=== PATIENT | male | born 1955 ===

== ENCOUNTER 2021-10-08 17:05 | Inpatient (IN) ==
[2021-10-08] MEDS ORDERED: NS 0.9% 500 ml BAG 500 ML IV ONE (17:36)
[2021-10-08] MEDS ORDERED: NS 0.9% 1000 ml BAG 1,000 ML IV ONE (17:51)
[2021-10-08 17:58] LABS: INR 1.09 (0.86-1.15)
[2021-10-08 18:25] LABS: ABS Basophils 0.1 10^3/ul (0-0.2); ABS Eosinophils 0.1 10^3/ul (0-0.6); ABS Lymphocytes 2.4 10^3/ul (1.0-4.8); ABS Monocytes 1.7 10^3/ul (0-0.8); ABS Neutrophils 12.6 10^3/ul (1.5-7.7); Eosinophil % 0.6 %; Hematocrit 45 % (42-52); Hemoglobin 14.9 g/dL (14.0-18.0); Lymphocyte % 14.4 %; Mean Corpuscular HGB Conc 33 g/dL (31-36); Mean Corpuscular Hemoglobin 30 pg (27-31); Mean Corpuscular Volume 91 fL (80-94); Red Cell Distribution Width 14 % (10-15); White Blood Count 16.9 10^3/uL (3.5-10.8)
[2021-10-08] MEDS: Iohexol 350 (CONTRAST) 500 ML MDV IV ONE ×2 (18:25→18:50)
[2021-10-08 18:34] LABS: Albumin 4.4 g/dL (3.2-5.2); Albumin/Globulin Ratio 1.4 (1-3); Calcium 9.2 mg/dL (8.6-10.3); Globulin 3.1 g/dL (2-4); Potassium 3.8 mmol/L (3.5-5.0); Total Bilirubin 0.6 mg/dL (0.2-1.0); Total Protein 7.5 g/dL (6.4-8.9); eGFR CKD-EPI 76.9 (>60)
[2021-10-08 18:38] LABS: Activated Partial Thrombo Time 29.4 seconds (26.0-38.0)
[2021-10-08 19:27] LABS: Platelet Count Platelets clumped. 10^3/uL (150-450)
[2021-10-08 19:36] LABS: HDL Cholesterol 56.3 mg/dL
[2021-10-08 20:02] LABS: High Sensitivity Troponin 1 Hr 9 pg/mL (<20)
[2021-10-08] MEDS ORDERED: cefTRIAXone 1 gm/50 mL D5W 1 GM/50 ML BAG IV ONE (20:22)
[2021-10-08] MEDS: Azithromycin 500 mg/250 ml NS 500 MG/250 ML BAG IVPB SCH (22:44)
[2021-10-08 22:58] LABS: C Reactive Protein 3.69 mg/L (<8.01)
[2021-10-09 06:27] LABS: ABS Basophils 0.1 10^3/ul (0-0.2); ABS Eosinophils 0.1 10^3/ul (0-0.6); ABS Lymphocytes 1.5 10^3/ul (1.0-4.8); ABS Monocytes 1.5 10^3/ul (0-0.8); ABS Neutrophils 12.8 10^3/ul (1.5-7.7); Eosinophil % 0.3 %; Hematocrit 48 % (42-52); Hemoglobin 15.8 g/dL (14.0-18.0); Lymphocyte % 9.5 %; Mean Corpuscular HGB Conc 33 g/dL (31-36); Mean Corpuscular Hemoglobin 30 pg (27-31); Mean Corpuscular Volume 90 fL (80-94); Mean Platelet Volume 7.1 fL (7.4-10.4); Nucleated Red Blood Cells % 0.1; Platelet Count 324 10^3/uL (150-450); Red Blood Count 5.29 10^6 /uL (4.18-5.48); Red Cell Distribution Width 15 % (10-15); White Blood Count 16.1 10^3/uL (3.5-10.8)
[2021-10-09 06:41] LABS: INR 1.13 (0.86-1.15)
[2021-10-09 07:08] LABS: Calcium 9.1 mg/dL (8.6-10.3); Magnesium 1.9 mg/dL (1.9-2.7); Potassium 4.2 mmol/L (3.5-5.0); eGFR CKD-EPI 83.5 (>60)
[2021-10-09] MEDS ORDERED: Digoxin IV 0.5 MG/2 ML AMP (0.25 MG/ML) IV SLOW PU ONE ×2 (15:47→17:01)
[2021-10-09] MEDS ORDERED: Metoprolol Tartrate 5 mg VIAL 5 ml VIAL (1 mg/ml) IV ONE (20:42)
[2021-10-09] MEDS: Azithromycin 500 mg/250 ml NS 500 MG/250 ML BAG IVPB SCH (20:56)
[2021-10-09] MEDS ORDERED: cefTRIAXone 1 gm/50 mL D5W 1 GM/50 ML BAG IV SCH (21:00)
[2021-10-09 21:42] LABS: Urine Appearance Clear; Urine Bilirubin Negative (Negative); Urine Blood 1+ (Negative); Urine Color Yellow; Urine Glucose Negative (Negative); Urine Ketones Negative (Negative); Urine Nitrite Negative (Negative); Urine Protein Negative (Negative); Urine Urobilinogen Negative (Negative)
[2021-10-09 21:59] LABS: Urine Bacteria Absent (Absent); Urine Red Blood Cell 2+(6-10/hpf) (Absent); Urine Sperm Present (Absent); Urine White Blood Cell Trace(0-5/hpf) (Absent)
[2021-10-09] MEDS: Digoxin IV 0.5 MG/2 ML AMP (0.25 MG/ML) IV SLOW PU SCH (23:55)
[2021-10-10] MEDS: Digoxin IV 0.5 MG/2 ML AMP (0.25 MG/ML) IV SLOW PU SCH (06:03)
[2021-10-10 09:06] LABS: Hematocrit 44 % (42-52); Hemoglobin 14.7 g/dL (14.0-18.0); Mean Corpuscular HGB Conc 34 g/dL (31-36); Mean Corpuscular Hemoglobin 31 pg (27-31); Mean Corpuscular Volume 91 fL (80-94); Mean Platelet Volume 7.2 fL (7.4-10.4); Platelet Count 312 10^3/uL (150-450); Red Blood Count 4.78 10^6 /uL (4.18-5.48); Red Cell Distribution Width 14 % (10-15); White Blood Count 18.1 10^3/uL (3.5-10.8)
[2021-10-10 09:09] LABS: ABS Basophils 0.1 10^3/ul (0-0.2); ABS Lymphocytes 1.7 10^3/ul (1.0-4.8); ABS Monocytes 1.8 10^3/ul (0-0.8); ABS Neutrophils 14.5 10^3/ul (1.5-7.7); Eosinophil % 0.2 %; Lymphocyte % 9.2 %
[2021-10-10 09:47] LABS: Calcium 9.4 mg/dL (8.6-10.3); Potassium 4.4 mmol/L (3.5-5.0); eGFR CKD-EPI 68.3 (>60)
[2021-10-12 17:48] VITALS: BP 139/78
== END 2021-10-12 13:09 | disposition home or self-care (01) | DRG 65 ==
LOC: EDHOLD 17:05 → ED 17:05 → SUATTDRO 10-09 09:00 → EDHOLD 10-09 16:07 → MEDTELE 10-09 17:08
PROVIDERS: ADMIT Internal Medicine; ATTEND Hospitalist

== ENCOUNTER 2022-02-23 18:15 | Inpatient (IN) ==
[2022-02-23 19:14] LABS: Hematocrit 40 % (42-52); Hemoglobin 13.3 g/dL (14.0-18.0); Mean Corpuscular HGB Conc 33 g/dL (31-36); Mean Corpuscular Hemoglobin 29 pg (27-31); Mean Corpuscular Volume 88 fL (80-94); Mean Platelet Volume 9.8 fL (7.4-10.4); Platelet Count 40 10^3/uL (150-450); Red Blood Count 4.54 10^6 /uL (4.18-5.48); Red Cell Distribution Width 15 % (10-15); White Blood Count 6.5 10^3/uL (3.5-10.8)
[2022-02-23 19:23] LABS: INR 1.96 (0.89-1.11)
[2022-02-23 19:48] LABS: ABS Lymphocytes 0.2 10^3/ul (1.0-4.8); ABS Monocytes 0.4 10^3/ul (0-0.8); ABS Neutrophils 5.9 10^3/ul (1.5-7.7); Lymphocyte % 3.4 %; Nucleated Red Blood Cells % 0.1
[2022-02-23 19:50] LABS: Albumin 3.7 g/dL (3.2-5.2); Albumin/Globulin Ratio 1.4 (1-3); Calcium 8.1 mg/dL (8.6-10.3); Globulin 2.7 g/dL (2-4); Potassium 4.4 mmol/L (3.5-5.0); Total Bilirubin 1.8 mg/dL (0.2-1.0); Total Protein 6.4 g/dL (6.4-8.9); eGFR CKD-EPI 59.7 (>60)
[2022-02-23] MEDS ORDERED: Lactated Ringers 1000 ml BAG 1,000 ML IV ONE (20:33)
[2022-02-23] MEDS ORDERED: cefTRIAXone 1 gm/50 mL D5W 1 GM/50 ML BAG IV ONE (20:33)
[2022-02-23] MEDS ORDERED: Azithromycin 500 mg/250 ml NS 500 MG/250 ML BAG IVPB ONE (20:34)
[2022-02-23 20:47] LABS: High Sensitivity Troponin 1 Hr 383 pg/mL (<20)
[2022-02-23] MEDS ORDERED: Iodixanol (CONTRAST) 320 MG/ML 100 ML SDV IV ONE (20:48)
[2022-02-23 21:15] LABS: Magnesium 1.9 mg/dL (1.9-2.7)
[2022-02-23 21:20] LABS: PCO2 Arterial 33 mmHg (35-45); PO2 Arterial 97 mmHg (80-100)
[2022-02-23] MEDS ORDERED: Furosemide 40 mg/4 ml IV VIAL IV ONE (21:25)
[2022-02-23] MEDS ORDERED: Acetaminophen IV 1 GM/100ML 1,000 MG/100 ML BAG IV PRN (22:40)
[2022-02-23] MEDS ORDERED: Enoxaparin 60 MG/0.6 ML SYR SUBCUT SCH (23:00)
[2022-02-24 00:02] LABS: Urine Appearance Cloudy; Urine Bilirubin Negative (Negative); Urine Blood 3+ (Negative); Urine Color Yellow; Urine Glucose Negative (Negative); Urine Ketones Negative (Negative); Urine Nitrite Negative (Negative); Urine Protein 1+(30 mg/dL) (Negative); Urine Specific Gravity 1.023 (1.002-1.030); Urine Urobilinogen Negative (Negative)
[2022-02-24] MEDS ORDERED: Digoxin IV 0.5 MG/2 ML AMP (0.25 MG/ML) IV SLOW PU ONE ×4 (00:13→21:00)
[2022-02-24 00:28] LABS: Urine Bacteria 1+ (Absent); Urine Granular Casts Present (Absent); Urine Red Blood Cell 2+(6-10/hpf) (Absent); Urine White Blood Cell 1+(6-10/hpf) (Absent)
[2022-02-24 00:58] LABS: Calcium 7.6 mg/dL (8.6-10.3); Potassium 3.7 mmol/L (3.5-5.0); eGFR CKD-EPI 53.7 (>60)
[2022-02-24 01:16] LABS: PCO2 Arterial 34 mmHg (35-45); PO2 Arterial 94 mmHg (80-100)
[2022-02-24 04:20] LABS: ABS Lymphocytes 0.1 10^3/ul (1.0-4.8); ABS Monocytes 0.1 10^3/ul (0-0.8); Hematocrit 37 % (42-52); Hemoglobin 12.5 g/dL (14.0-18.0); Lymphocyte % 1.5 %; Mean Corpuscular HGB Conc 34 g/dL (31-36); Mean Corpuscular Hemoglobin 29 pg (27-31); Mean Corpuscular Volume 87 fL (80-94); Mean Platelet Volume 9.5 fL (7.4-10.4); Platelet Count 31 10^3/uL (150-450); Red Cell Distribution Width 15 % (10-15); White Blood Count 6.2 10^3/uL (3.5-10.8)
[2022-02-24 04:51] LABS: Albumin 3.1 g/dL (3.2-5.2); Albumin/Globulin Ratio 1.3 (1-3); Calcium 7.5 mg/dL (8.6-10.3); Globulin 2.4 g/dL (2-4); Magnesium 1.8 mg/dL (1.9-2.7); Potassium 3.4 mmol/L (3.5-5.0); Total Protein 5.5 g/dL (6.4-8.9)
[2022-02-24] MEDS ORDERED: Magnesium Sulfate 2 gm BAG 2 GM/50 ML BAG IVPB ONE (05:13)
[2022-02-24] MEDS: KCL 20 MEQ/100 ML IVPREMIX 20 MEQ/100 ML BAG IV SCH ×2 (05:38→08:03)
[2022-02-24 09:52] LABS: Phosphorus 3.7 mg/dL (2.5-5.0)
[2022-02-24 12:30] LABS: TSH Ultra Thyroid Stim Horm 1.61 mcIU/mL (0.34-5.60)
[2022-02-24] MEDS ORDERED: Furosemide 20 mg/2 ml IV VIAL IV SLOW PU ONE (14:11)
[2022-02-24 16:19] LABS: Hematocrit 40 % (42-52); Hemoglobin 13.5 g/dL (14.0-18.0); Mean Corpuscular HGB Conc 34 g/dL (31-36); Mean Corpuscular Hemoglobin 29 pg (27-31); Mean Corpuscular Volume 87 fL (80-94); Red Blood Count 4.63 10^6 /uL (4.18-5.48); Red Cell Distribution Width 15 % (10-15); White Blood Count 6.1 10^3/uL (3.5-10.8)
[2022-02-24 16:26] LABS: Magnesium 2.6 mg/dL (1.9-2.7)
[2022-02-24 16:32] LABS: % Iron Saturation 11 % (15-55); Albumin/Globulin Ratio 1.2 (1-3); Anion Gap 7 mmol/L (2-11); CO2 Carbon Dioxide 29 mmol/L (22-32); Calcium 7.9 mg/dL (8.6-10.3); Chloride 93 mmol/L (101-111); Globulin 2.5 g/dL (2-4); Iron 23 ug/dL (50-212); Sodium 129 mmol/L (135-145); Total Iron Binding Capacity 209 mcg/dL (250-450); Total Protein 5.5 g/dL (6.4-8.9); Transferrin 149 mg/dL (203-362); Unsaturated Iron Binding 186 ug/dL
[2022-02-24 16:33] LABS: ALT 69 U/L (7-52); AST 114 U/L (13-39); Alkaline Phosphatase 76 U/L (35-149); Blood Urea Nitrogen 34 mg/dL (6-24); Glucose 99 mg/dL (70-100); eGFR CKD-EPI 54.2 (>60)
[2022-02-24 17:35] LABS: ABS Lymphocytes 0.1 10^3/ul (1.0-4.8); ABS Monocytes 0.2 10^3/ul (0-0.8); ABS Neutrophils 5.8 10^3/ul (1.5-7.7); Eosinophil % 0.1 %; Lymphocyte % 1.7 %; Mean Platelet Volume 11.2 fL (7.4-10.4); Nucleated Red Blood Cells % 0.2; Platelet Count 34 10^3/uL (150-450)
[2022-02-24 18:43] LABS: Ferritin > 7500.0 ng/mL (24-336)
[2022-02-24] MEDS ORDERED: cefTRIAXone 1 gm/50 mL D5W 1 GM/50 ML BAG IV SCH (20:00)
[2022-02-24] MEDS: Pantoprazole VIAL 40 MG VIAL IV SCH (20:32)
[2022-02-25 06:29] LABS: Hematocrit 37 % (42-52); Hemoglobin 12.3 g/dL (14.0-18.0); Mean Corpuscular HGB Conc 34 g/dL (31-36); Mean Corpuscular Hemoglobin 29 pg (27-31); Mean Corpuscular Volume 88 fL (80-94); Mean Platelet Volume 10.6 fL (7.4-10.4); Platelet Count 30 10^3/uL (150-450); Red Blood Count 4.19 10^6 /uL (4.18-5.48); Red Cell Distribution Width 15 % (10-15); White Blood Count 5.3 10^3/uL (3.5-10.8)
[2022-02-25 06:55] LABS: Albumin 2.5 g/dL (3.2-5.2); Albumin/Globulin Ratio 1.3 (1-3); Calcium 6.9 mg/dL (8.6-10.3); Digoxin 1.7 ng/ml (0.8-2.0); Potassium 3.4 mmol/L (3.5-5.0); Total Bilirubin 2.1 mg/dL (0.2-1.0); Total Protein 4.5 g/dL (6.4-8.9); eGFR CKD-EPI 59.1 (>60)
[2022-02-25 07:34] LABS: ABS Lymphocytes 0.1 10^3/ul (1.0-4.8); ABS Monocytes 0.1 10^3/ul (0-0.8); ABS Neutrophils 5.1 10^3/ul (1.5-7.7); Lymphocyte % 1.6 %
[2022-02-25] MEDS ORDERED: Piperacillin/Tazobac ADVAN 3.375 GM in NS 0.9% 100 ml BAG 100 ML IV ONE (08:19)
[2022-02-25] MEDS: Pantoprazole VIAL 40 MG VIAL IV SCH ×2 (08:42→21:23)
[2022-02-25] MEDS ORDERED: Zosyn per Pharmacy NOTE FOLLOW UP SCH (09:00)
[2022-02-25] MEDS ORDERED: Potassium Chlor 20 meq TAB.ER PO ONE ×2 (09:46→15:45)
[2022-02-25] MEDS ORDERED: Vancomycin per Pharmacy 1 EA NOTE FOLLOW UP SCH (10:00)
[2022-02-25] MEDS ORDERED: Vancomycin 1,000 MG in NS 0.9% 250 ml 250 ML IVPB ONE (10:00)
[2022-02-25] MEDS: ZOSYN 3.375 GM Q8H per EXTENDED INFUSION IV SCH ×2 (13:08→21:24)
[2022-02-25] MEDS ORDERED: Amiodarone 150 mg IVPREMIX 150 MG/100 ML BAG IV ONE (18:10)
[2022-02-25] MEDS ORDERED: .Amiodarone 24HR ONLY IV Protocol Order Note IV ONE (18:10)
[2022-02-25] MEDS: Amiodarone 360 MG IVPREMIX 360 MG/200 ML BAG IV SCH ×2 (18:32→18:40)
[2022-02-25] MEDS: Vancomycin 750 MG in NS 0.9% 250 ML IVPB SCH (23:13)
[2022-02-26] MEDS: Amiodarone 360 MG IVPREMIX 360 MG/200 ML BAG IV SCH ×2 (00:07→12:08)
[2022-02-26] MEDS: ZOSYN 3.375 GM Q8H per EXTENDED INFUSION IV SCH ×3 (04:36→20:52)
[2022-02-26 05:18] LABS: Hematocrit 36 % (42-52); Hemoglobin 11.9 g/dL (14.0-18.0); Mean Corpuscular HGB Conc 33 g/dL (31-36); Mean Corpuscular Hemoglobin 29 pg (27-31); Mean Corpuscular Volume 88 fL (80-94); Mean Platelet Volume 11.1 fL (7.4-10.4); Platelet Count 35 10^3/uL (150-450); Red Blood Count 4.13 10^6 /uL (4.18-5.48); Red Cell Distribution Width 15 % (10-15); White Blood Count 5.3 10^3/uL (3.5-10.8)
[2022-02-26 05:27] LABS: Urine Osmo 521 mOsm/kg (150-1150)
[2022-02-26 05:29] LABS: Calcium 7.3 mg/dL (8.6-10.3); Magnesium 2.1 mg/dL (1.9-2.7); Potassium 4.1 mmol/L (3.5-5.0); eGFR CKD-EPI 50.7 (>60)
[2022-02-26 07:26] LABS: RBC Morphology Normal (Normal)
[2022-02-26 07:27] LABS: ABS Lymphocytes 0.3 10^3/ul (1.0-4.8); ABS Monocytes 0.4 10^3/ul (0-0.8); ABS Neutrophils 4.7 10^3/ul (1.5-7.7); Eosinophil % 0.2 %; Lymphocyte % 5.4 %; Nucleated Red Blood Cells % 0.2
[2022-02-26 08:28] LABS: C Reactive Protein 261.48 mg/L (<8.01)
[2022-02-26] MEDS: Pantoprazole VIAL 40 MG VIAL IV SCH ×2 (08:53→20:51)
[2022-02-26] MEDS: Vancomycin 750 MG in NS 0.9% 250 ML IVPB SCH ×2 (09:38→22:12)
[2022-02-26] MEDS: DOXYcycline 100 MG in NS 0.9% 250 ml 250 ML IVPB SCH ×2 (11:13→22:40)
[2022-02-26 15:13] LABS: Urine Osmo 509 mOsm/kg (150-1150)
[2022-02-26 15:49] LABS: Hematocrit 34 % (42-52); Hemoglobin 11.4 g/dL (14.0-18.0); Mean Corpuscular HGB Conc 34 g/dL (31-36); Mean Corpuscular Hemoglobin 30 pg (27-31); Mean Corpuscular Volume 87 fL (80-94); Mean Platelet Volume 10.3 fL (7.4-10.4); Platelet Count 33 10^3/uL (150-450); Red Blood Count 3.86 10^6 /uL (4.18-5.48); Red Cell Distribution Width 16 % (10-15); White Blood Count 4.5 10^3/uL (3.5-10.8)
[2022-02-26 16:41] LABS: ABS Lymphocytes 0.1 10^3/ul (1.0-4.8); ABS Monocytes 0.5 10^3/ul (0-0.8); ABS Neutrophils 3.9 10^3/ul (1.5-7.7); Acanthocytes 1+; Anisocytosis 1+; Eosinophil % 0.2 %; Toxic Granulation 1+
[2022-02-26 16:51] LABS: Dohle Bodies Present
[2022-02-26] MEDS ORDERED: Rocuronium 50 mg VIAL 10 mg/ml 5 ml VIAL (50 mg) ONE (21:10)
[2022-02-26] MEDS ORDERED: Succinylcholine 200 mg VIAL 20 mg/ml 10 ml VIAL (200 mg) ONE (21:10)
[2022-02-27 04:44] LABS: Hematocrit 36 % (42-52); Hemoglobin 11.9 g/dL (14.0-18.0); Mean Corpuscular HGB Conc 33 g/dL (31-36); Mean Corpuscular Hemoglobin 29 pg (27-31); Mean Corpuscular Volume 87 fL (80-94); Mean Platelet Volume 10.4 fL (7.4-10.4); Platelet Count 42 10^3/uL (150-450); Red Blood Count 4.13 10^6 /uL (4.18-5.48); Red Cell Distribution Width 16 % (10-15); White Blood Count 8.1 10^3/uL (3.5-10.8)
[2022-02-27 05:04] LABS: Albumin 2.3 g/dL (3.2-5.2); Globulin 2.3 g/dL (2-4); Potassium 3.6 mmol/L (3.5-5.0); Total Bilirubin 1.5 mg/dL (0.2-1.0); Total Protein 4.6 g/dL (6.4-8.9); eGFR CKD-EPI 47.3 (>60)
[2022-02-27] MEDS: ZOSYN 3.375 GM Q8H per EXTENDED INFUSION IV SCH ×3 (05:19→22:02)
[2022-02-27 06:12] LABS: RBC Morphology Normal (Normal)
[2022-02-27 06:13] LABS: ABS Basophils 0.1 10^3/ul (0-0.2); ABS Eosinophils 0.1 10^3/ul (0-0.6); ABS Lymphocytes 2.2 10^3/ul (1.0-4.8); ABS Monocytes 1.2 10^3/ul (0-0.8); ABS Neutrophils 4.6 10^3/ul (1.5-7.7); Eosinophil % 0.8 %; Lymphocyte % 27.4 %; Nucleated Red Blood Cells % 0.3
[2022-02-27] MEDS ORDERED: Furosemide 20 mg/2 ml IV VIAL IV SLOW PU ONE (07:31)
[2022-02-27] MEDS ORDERED: Potassium Chlor 20 meq TAB.ER PO ONE (07:34)
[2022-02-27] MEDS ORDERED: Vancomycin Trough Check NOTE FOLLOW UP ONE (09:30)
[2022-02-27] MEDS: Pantoprazole VIAL 40 MG VIAL IV SCH ×2 (09:33→22:04)
[2022-02-27] MEDS: DOXYcycline 100 MG in NS 0.9% 250 ml 250 ML IVPB SCH ×2 (09:42→22:04)
[2022-02-27 10:59] LABS: Vancomycin Trough 11.4 mcg/mL; eGFR CKD-EPI 45.9 (>60)
[2022-02-27] MEDS: Vancomycin 750 MG in NS 0.9% 250 ML IVPB SCH (11:26)
[2022-02-27 16:19] LABS: HIV 4th Generation Nonreactive (Nonreactive)
[2022-02-28] MEDS: ZOSYN 3.375 GM Q8H per EXTENDED INFUSION IV SCH (06:08)
[2022-02-28 06:27] LABS: Hematocrit 37 % (42-52); Hemoglobin 12.5 g/dL (14.0-18.0); Mean Corpuscular HGB Conc 34 g/dL (31-36); Mean Corpuscular Hemoglobin 29 pg (27-31); Mean Corpuscular Volume 86 fL (80-94); Platelet Count 48 10^3/uL (150-450); Red Blood Count 4.31 10^6 /uL (4.18-5.48); Red Cell Distribution Width 15 % (10-15); White Blood Count 11.2 10^3/uL (3.5-10.8)
[2022-02-28 07:05] LABS: RBC Morphology Normal (Normal)
[2022-02-28 07:06] LABS: ABS Basophils 0.1 10^3/ul (0-0.2); ABS Eosinophils 0.2 10^3/ul (0-0.6); ABS Lymphocytes 3.9 10^3/ul (1.0-4.8); ABS Monocytes 1.6 10^3/ul (0-0.8); ABS Neutrophils 5.5 10^3/ul (1.5-7.7); Eosinophil % 1.4 %; Lymphocyte % 34.9 %; Nucleated Red Blood Cells % 0.4
[2022-02-28 07:12] LABS: Albumin 2.5 g/dL (3.2-5.2); Calcium 7.6 mg/dL (8.6-10.3); Globulin 2.4 g/dL (2-4); Magnesium 2.1 mg/dL (1.9-2.7); Total Bilirubin 1.8 mg/dL (0.2-1.0); Total Protein 4.9 g/dL (6.4-8.9)
[2022-02-28] MEDS: Pantoprazole VIAL 40 MG VIAL IV SCH (09:25)
[2022-02-28] MEDS: DOXYcycline 100 MG in NS 0.9% 250 ml 250 ML IVPB SCH (09:38)
[2022-02-28 13:38] LABS: Hepatitis B Surface Antigen Nonreactive (Nonreactive)
[2022-02-28 13:55] LABS: Hepatitis B Surface Ab Not Immune (Immune); Hepatitis C Antibody Negative (Negative)
[2022-02-28 19:58] LABS: Anaplasma phagocytophilum Positive (Negative); B. miyamotoi PCR, B Negative (Negative); Babesia divergens/MO-1 Negative (Negative); Babesia ducani Negative (Negative); Ehrlichia chaffeensis Negative (Negative); Ehrlichia ewingii/canis Negative (Negative); Ehrlichia muris eauclairensis Negative (Negative)
[2022-03-01 05:20] LABS: Hematocrit 38 % (42-52); Hemoglobin 12.6 g/dL (14.0-18.0); Mean Corpuscular HGB Conc 33 g/dL (31-36); Mean Corpuscular Hemoglobin 29 pg (27-31); Mean Corpuscular Volume 86 fL (80-94); Platelet Count 66 10^3/uL (150-450); Red Blood Count 4.42 10^6 /uL (4.18-5.48); Red Cell Distribution Width 15 % (10-15); White Blood Count 17.2 10^3/uL (3.5-10.8)
[2022-03-01 05:44] LABS: Calcium 7.9 mg/dL (8.6-10.3); Magnesium 2.1 mg/dL (1.9-2.7); Potassium 4.3 mmol/L (3.5-5.0); eGFR CKD-EPI 51.5 (>60)
[2022-03-01 07:58] LABS: RBC Morphology Normal (Normal)
[2022-03-01 07:59] LABS: ABS Basophils 0.2 10^3/ul (0-0.2); ABS Eosinophils 0.2 10^3/ul (0-0.6); ABS Lymphocytes 7.8 10^3/ul (1.0-4.8); ABS Monocytes 2.4 10^3/ul (0-0.8); ABS Neutrophils 6.5 10^3/ul (1.5-7.7); ABS Nucleated RBC 0.1 10^3/ul; Eosinophil % 1.4 %; Lymphocyte % 45.6 %; Nucleated Red Blood Cells % 0.3
[2022-03-01 08:27] LABS: C Reactive Protein 66.8 mg/L (<8.01)
[2022-03-02 06:16] LABS: Hematocrit 38 % (42-52); Hemoglobin 12.7 g/dL (14.0-18.0); Mean Corpuscular HGB Conc 33 g/dL (31-36); Mean Corpuscular Hemoglobin 29 pg (27-31); Mean Corpuscular Volume 86 fL (80-94); Mean Platelet Volume 10.8 fL (7.4-10.4); Platelet Count 97 10^3/uL (150-450); Red Blood Count 4.45 10^6 /uL (4.18-5.48); Red Cell Distribution Width 16 % (10-15)
[2022-03-02 06:18] LABS: Albumin 2.6 g/dL (3.2-5.2); Albumin/Globulin Ratio 0.9 (1-3); Calcium 7.9 mg/dL (8.6-10.3); Globulin 2.9 g/dL (2-4); Magnesium 2.1 mg/dL (1.9-2.7); Total Bilirubin 1.2 mg/dL (0.2-1.0); Total Protein 5.5 g/dL (6.4-8.9); eGFR CKD-EPI 66.3 (>60)
[2022-03-02 08:13] VITALS: BP 113/76
[2022-03-02 08:42] LABS: ABS Basophils 0.1 10^3/ul (0-0.2); ABS Eosinophils 0.2 10^3/ul (0-0.6); ABS Lymphocytes 8.2 10^3/ul (1.0-4.8); ABS Monocytes 2.5 10^3/ul (0-0.8); Eosinophil % 0.9 %; Lymphocyte % 43.2 %; Nucleated Red Blood Cells % 0.1
== END 2022-03-02 16:36 | disposition home or self-care (01) | DRG 871 ==
LOC: ED 18:15 → ICU 20:00 → EDHOLD 21:20 → SUATTDRO 21:20 → ICU 22:29 → MEDTELE 02-27 14:29
PROVIDERS: ADMIT Student in an Organized Health Care Education/Training Program; ATTEND Internal Medicine